=== PATIENT | female | born 1940 | race Caucasian/White ===

== ENCOUNTER 2024-11-12 07:40 | Day surgery (SDC) | payer MEDICARE ==
--- NOTE | 2024-11-08 14:01 | ELECTROCARDIOGRAPH REPORT ---
[facility] Test Date: 2024-11-08 Test Time: 13:56:28 Pat Name: BRANDON EASON Department: [facility]-PRE-OP Patient ID: [id number] Room: Gender: F Daycare Teacher: ESEQUIEL : 1940 Requested By: INEZ PRITCHARD Order Number: [id number] Reading MD: Dr. ARCADIO Malone Measurements Intervals [place] Rate: 57 P: 51 SC: 185 QRS: 47 QRSD: 90 T: 48 QT: 408 QTc: 398 Interpretive Statements Sinus bradycardia Electronically Signed On 11-08-2024 16:46:[address] ARCADIO Malone Please click the below link to view image of tracing.
[2024-11-08 14:23] LABS: MEAN PLATELET VOLUME 9.1 FL (7.4-10.4); PRE OP HEMATOCRIT 38.5 % (35.0-45.0); PRE OP HEMOGLOBIN 12.7 g/dL (12.0-16.0); PRE OP PLATELET COUNT 171 X10'3 (140-440); PRE OP WHITE BLOOD COUNT 7.8 10'3 (4.8-10.8); RED CELL DISTRIBUTION WIDTH 14.3 % (11.5-14.5)
[2024-11-08 14:39] LABS: CREATININE 0.79 MG/DL (0.40-0.90); PRE OP ALT 20 U/L (30-65); PRE OP ANION GAP 6 (8-16); PRE OP AST 15 U/L (10-37); PRE OP BILIRUB, TOTAL 0.4 MG/DL (0.0-1.0); PRE OP GLUCOSE 87 MG/DL (70-104); PRE OP POTASSIUM 3.5 MMOL/L (3.4-5.1); PRE OP SODIUM 140 MMOL/L (135-145); TOTAL CARBON DIOXIDE 28.9 MMOL/L (24-32); eGFR 70 ML/MIN
[2024-11-12] VITALS (13 sets, daily range): BP systolic 160–190; BP diastolic 71–94; PULSE 59–79; RESP 11–19; TEMP 97.3; O2SAT 92–99
[~2024-11-12] VITALS: Ht 154.9 cm; Wt 79.0 kg
[2024-11-12] MEDS: ceFAZolin 2gm/dext,iso 50mL 50 ML IV ONE ×2 (05:30→08:51)
[~2024-11-12 07:40] MED LIST: NO HOME MEDS; ringers solution, lacted 1,000 ML IV SCH
[2024-11-12] MEDS: ringers solution, lacted 1,000 ML IV SCH (08:52)
[2024-11-12] MEDS ORDERED: HYDROmorphone/PF 0.2 MG/ML SYRINGE IV PRN ×2 (09:10)
[2024-11-12] MEDS ORDERED: ringers solution, lacted 1,000 ML IV SCH (09:10)
[2024-11-12] MEDS ORDERED: hydrALAZINE 20mg/ml inj. IV PRN (09:10)
[2024-11-12] MEDS ORDERED: ondansetron/PF 4mg/2ml inj IV PRN (09:10)
[2024-11-12] MEDS ORDERED: LIDOcaine 1% (10mg/ml)w/preservative inj. 20ml MDV ONE (09:18)
[2024-11-12] MEDS ORDERED: BUPIVAcaine/PF 2.5mg/ml (0.25%) 10ml vial ONE (09:19)
[2024-11-12] MEDS ORDERED: methylene blue (5mg/ml) 50mg/10ml ampul IV ONE (09:20)
[2024-11-12] MEDS ORDERED: propofol inj 20 ML IV ONE (09:52)
[2024-11-12] MEDS ORDERED: fentaNYL/PF 50MCG/1 ML 2ML syringe ONE (09:52)
[2024-11-12] MEDS ORDERED: dexamethasone sod phosphate 4mg/ml inj. ONE (12:14)
[2024-11-12] MEDS ORDERED: ondansetron/PF 4mg/2ml inj ONE (12:14)
[2024-11-12] MEDS: acetaminophen 1,000mg/100ml IV 100 ML IV PRN (12:40)
--- NOTE | 2024-11-12 12:44 | OPERATIVE REPORT ---
Operative Report Providers to CC CC: INEZ PRITCHARD DO ~ Date of Procedure: Nov 12, 2024 Pre-Operative Diagnosis: left breast breast cancer at 5:00 5 cfn and 6:00 3cfn, acquired defect Post-Operative Diagnosis SAME as PRE-Op Procedure Performed 1. left breast ultrasound guided localized lumpectomy at 6:00 3 cfn 2. left breast wireless (pintuition ) localized lumpectomy at 5:00 5 cfn 3. Intraoperative ultrasound guidance 4. Reading of specimen radiograph 5. Oncoplastic closure of acquired defect Surgeon: Dr. Inez Pritchard Senior Revenue Accountant sterile processing technician Anesthesiologist: Kem Bain Type of Anesthesia: General Findings: Left breast cancer 5:00 5 cm from the nipple and 6:00 3 cm from the nipple two markers within the two tumors and two pintuition markers. Complications None Estimated Blood Loss: less than 10 ml Specimen Removed: -Left breast ultrasound guided lumpectomy at 6:00 3 cfn short suture superior, long lateral, double deep -Left breast wireless localized lumpectomy at 5:00 5 cfn short suture superior, long lateral, double deep -Anterior margin, suture palencia final marginf for 5:00 5 cfn Description of Procedure: Patient was seen and evaluated in the preoperative holding area by myself and the anesthesiologist. The left breast was marked with my initials. Prior to her arrival previously she had two pintuition markers at 6:00 and 5:[address] Nitin Lopes for the removal of multifocal left breast cancer. The risks and benefits and alternatives to surgery were discussed with the patient and she agreed to breast conservation. She was taken to the OR placed on table in supine position with the arms extended. I used the ultrasound to jesus manuel the breast as I identified the tumor at 6:00 3 cm from the nipple. The patient was prepped and draped in a sterile fashion a time-out was performed and agreed upon. She had an IV in place, SCDs to lower extremities, and a Eris Hugger. Antibiotics had been administered prior to the cut of surgery. I made a horizontal incision inferior to the areola and just above the inframammary crease approximately 4 cm in length. I used the ultrasound to scanned the breast again to confirm my markings. I injected 1% lidocaine at the proposed incision site. Once the made the incision with a 15 blade I extended the anterior flap of the incision with the cautery. I dissected down to with the tumor was palpable and dissected around it in a circumferential fashion and p osterior to it. Once the mass was completely excised it was oriented with short stitch superior, long suture lateral, double suture deep. It was secured to the specimen board and placed off the field. The pintuition marker associated with the tumor adhered to the DeBakey forceps. The specimen radiograph confirmed the original marker and the tumor. The images were taken in two views. I proceeded with a 2nd tumor which appeared to be palpable just inferior and lateral to the original tumor. The pintuition probe was used to scan and confirm the location of the 2nd tumor. I circumferentially excised this tumor and it was removed from the cavity and oriented with short stitch superior, long suture lateral, and double suture deep. The specimen was secured onto the specimen radiograph board and placed in the machine. The marker was detected within the tumor. The 2nd tracer also adhered to the DeBakey. Two views were taken of the specimen which confirmed the tumor in the tissue. A frozen section was performed by pathologist Dr. Ayon on both tumors to confirm carcinoma and margin status. The 2nd tumor at 6:00 6 cm from the nipple had a close anterior margin. At that point I excised an anterior margin and marked the final margin with a suture and it was placed in formalin off the field. The cavity was copiously irrigated and hemostasis was achieved with Bovie electrocautery 10 mL of Vistaseal spray for was sprayed into the cavity to help with hemostasis. The acquired defect, cavity measured 15 cm x 8 cm x 4 cm. I mobilized the creating a flap from the superior aspect of the cavity and medial and laterally to feel the acquired defect. That was sutured and secured with 3-0 kasey Vicryl suture. The skin was closed in two layers 3- 0 Vicryl interrupted sutures in the deep dermal layer and 4-0 Monocryl running subcuticular stitch for the skin. All needle and sponge counts were correct patient tolerated the procedure well. She was taken to recovery in stable condition. Counts repoted as correct: Yes INEZ PRITCHARD DO Nov 12, 2024 12:44
[2024-11-12] MEDS: morphine 4 MG/ML inj SYRINge IV PRN (12:45)
[2024-11-12] MEDS: labetalol 20mg/4ml (5mg/ml) syringe IV PRN (12:47)
[2024-11-12] MEDS: ondansetron 4mg rapidly disintigrating tab PO ONE (13:55)
--- NOTE | 2024-11-16 11:56 | PATHOLOGY REPORT ---
[facility] [address] [place] [address] SURGICAL PATHOLOGY REPORT CaseNumber: [id number] Surgeon:Ana Gold M.D. CLINICAL INFORMATION CLINICAL INFORMATION: Invasive carcinoma. Cancer left breast. DIAGNOSIS DIAGNOSIS: A.BREAST, LEFT, 6:00, 3 CM FN; LUMPECTOMY - INVASIVE DUCTAL ADENOCARCINOMA, PATHOLOGIC STAGE PT1C(M). - ALL MARGINS ARE NEGATIVE. - PERMANENT SECTIONS CONFIRM FROZEN SECTION DIAGNOSIS. Comment: Specimen Procedure: Excision (less than total mastectomy) Specimen Laterality: Left Tumor Tumor Site: Clock position; Distance from nipple (Centimeters) 3 cm 6 o'clock Histologic Type: Invasive carcinoma of no special type (ductal) Histologic Grade (Paxton Histologic Score): Glandular (Acinar) / Tubular Differentiation: Score 3 Nuclear Pleomorphism: Score 2 Mitotic Rate: Score 2 Overall Grade: Grade 2 (scores of 6 or 7) Tumor Size: 15 Millimeters (mm) Ductal Carcinoma In Situ (DCIS): Not identified Lymphatic and / or Vascular Invasion: Not identified Treatment Effect in the Breast: No known presurgical therapy Margins Margin Status for Invasive Carcinoma: All margins negative for invasive carcinoma Distance from Invasive Carcinoma to Closest Margin: 6 mm Closest Margin(s) to Invasive Carcinoma: Posterior Regional Lymph Nodes Regional Lymph Node Status: Not applicable (no regional lymph nodes submitted or found) pTNM Classification (AJCC 8th Edition) pT Category: pT1c T Suffix: (m) pN Category: pN not assigned (no nodes submitted or found) ER/MN/Her2 ER- Positive (95% Strongly Positive) MN- Negative Her2- Negative (1+) [facility] 2023 Q2 Release DIAGNOSIS: B.BREAST, LEFT, 5:00, 5 CM FN; LUMPECTOMY - INVASIVE DUCTAL ADENOCARCINOMA, PATHOLOGIC STAGE PT1C (M). - ANTERIOR MARGIN IS CLEAR BY LESS THAN 0.1 CM Comment: Specimen Procedure: Excision (less than total mastectomy) Specimen Laterality: Left Tumor Tumor Site: Clock position; Distance from nipple (Centimeters) 5 cm 5 o'clock Histologic Type: Invasive carcinoma of no special type (ductal) Histologic Grade (Paxton Histologic Score): Glandular (Acinar) / Tubular Differentiation: Score 2 Nuclear Pleomorphism: Score 2 Mitotic Rate: Score 2 Overall Grade: Grade 2 (scores of 6 or 7) Tumor Size: 20 Millimeters (mm) Ductal Carcinoma In Situ (DCIS): Not identified Lymphatic and / or Vascular Invasion: Not identified Treatment Effect in the Breast: No known presurgical therapy Margins Margin Status for Invasive Carcinoma: Anterior Margin narrowly clear (less than 0.1 cm) Regional Lymph Nodes Regional Lymph Node Status: Not applicable (no regional lymph nodes submitted or found) pTNM Classification (AJCC 8th Edition) pT Category: pT1c T Suffix: (m) pN Category: pN not assigned (no nodes submitted or found) ER/MN/Her2 ER- Positive (90% Strongly Positive) MN- Positive (<10% Strongly Positive) Her2- Negative (1+) [facility] 2023 Q2 Release DIAGNOSIS: C.BREAST, LEFT, ANTERIOR MARGIN; RE-EXCISION - BENIGN BREAST TISSUE. MICROSCOPIC DESCRIPTION A. BREAST, LEFT, 6:00, 3 CM FN MICROSCOPIC DESCRIPTION: Reviewed 8 H&E stained slides of a breast lumpectomy. The frozen section sl lucille demonstrates invasive carcinoma that is confirmed by the permanent section. The lesional cells c onsist of nests and sheets of malignant cells in a solid growth pattern. There is an additional secti on of the lesion demonstrating the closest margin, 0.6 cm from posterior margin (black ink). No lymph ovascular or angioinvasion is identified. The remaining sections are of benign adipose tissue. Reviewed ER IHC stained slide which is positive, strongly staining 95% of the lesion. Reviewed MN IHC stained slide which is negative. Reviewed Her2 IHC stained slide which is negative, with light incomplete membrane staining consisten t with a score of 1+. Reviewed Ki-67 IHC stained slide which shows a proliferation index of about 30%. B. BREAST, LEFT, 5:00, 5 CM FN MICROSCOPIC DESCRIPTION: Reviewed 10 H&E stained slides of a breast lumpectomy. The frozen section s lide demonstrates invasive carcinoma that is confirmed by the permanent section. The lesional cells consist of trabeculae and sheets of malignant cells in a mix of ductal and solid growth patterns. The lesion extends to the anterior margin (red ink). No lymphovascular or angioinvasion is identified. One ER IHC stained slide is reviewed. The ER IHC stain is positive, strongly staining 95% of the les ion. One MN IHC stained slide is reviewed. The MN IHC stain is positive, strongly staining less than 10% of the lesion. One Her2 IHC stained slide is reviewed. The Her2 IHC stain is negative, with light incomplete membra ne staining consistent with a score of 1+. There is focal staining of 2+ for less than 10% of the les ion. One Ki-67 IHC stained slide is reviewed. The Ki-67 IHC stain shows a proliferation index of about 20 %. C. BREAST, LEFT, ANTERIOR MARGIN MICROSCOPIC DESCRIPTION: Reviewed are five H&E stained slides of benign breast tissue with terminal d ucts and lobules. No malignancy is identified. GROSS DESCRIPTION A. BREAST, LEFT, 6:00, 3 CM FN GROSS DESCRIPTION: Received unfixed from the operating room labeled with the patient's name, number, and "left breast lumpectomy" is a 37 g oriented excision of fibrofatty breast tissue which measures 9 x 5.5 x 3 cm. The specimen is examined at the time of surgery and a portion of the specimen is submi tted for frozen section by Dr. Ayon. There are sutures found marking the superior, lateral, and adam p aspects of the excision. The superior margin is marked blue, the inferior margin is marked green, t he medial margin is marked orange, the lateral margin is marked yellow, the anterior margin is marked red, and the posterior margin is marked black. The specimen is sectioned by Dr. Ayon to reveal a 1 .5 x 1 x 1.5 cm firm parker-singer neoplasm which is present 1 cm from the anterior, posterior, and inferi or margins. Sectioning the neoplasm reveals foreign material (metallic clip). INTRAOPERATIVE CONSULTATION WITH FROZEN SECTION DIAGNOSIS BY Dr. Ayon at 1145: "Invasive carcinoma ." (Performed at [address] [address]) Sections are submitted as follows: A1) Frozen section remnantA2) Superior marginA3-A4) Inferior margin with tumorA5) Medial marginA6) L ateral marginA7) Tumor with anterior and posterior margins The time at which the specimen was removed was 1110. The time at which the specimen was placed in [facility] was not provided. (meb) B. BREAST, LEFT, 5:00, 5 CM FN GROSS DESCRIPTION: Received unfixed from the operating room labeled with the patient's name, number, and "left breast lumpectomy" is a 53 g oriented excision of fibrofatty breast tissue which measures 8 .5 x 5 x 3 cm. The specimen is examined at the time of surgery and a portion of the tissue is submitt ed for frozen section by Dr. Ayon. There are sutures marking the superior, lateral, and posterior a spects of the excision. The superior margin is marked blue, the inferior margin is marked green, the medial margin is marked orange, the lateral margin is marked yellow, the anterior margin is marked re d, and the posterior margin is marked black. The specimen is sectioned by Dr. Ayon reveal a 2 x 2 x 1.5 cm firm parker-singer neoplasm which is present at the anterior margin, 0.5 cm from the inferior alexandru in, and 0.6 cm from the posterior margin. INTRAOPERATIVE CONSULTATION WITH FROZEN SECTION DIAGNOSIS BY Dr. Ayon at 1145: "Invasive carcinoma ." (Performed at [address] [address]) Sections are submitted as follows: B1) Frozen section remnantB2) Superior marginB3-B4) Inferior margin with tumorB5) Medial marginB6) L ateral marginB7-B8) Anterior margin with tumorB9) Posterior margin with tumor The time at which the specimen was removed was 1110. The time at which the specimen was placed in fo rmalin was not provided. (meb) C. BREAST, LEFT, ANTERIOR MARGIN GROSS DESCRIPTION: Received in a container of formalin labeled with the patient's name, number, and " left breast anterior margin" is a 16 gram oriented excision of fibrofatty breast tissue which measure s 5 x 4 x 2 cm. There is a suture found marking the new margin. The new margin is marked black. Secti oning reveals foreign material (metallic clip). [employer]xtures Decorator sections are submitted as C1-C5. The t dustin at which the specimen was removed was 1155. The time at which the specimen was placed in formalin was 1158. (meb) Electronically signed by: Lexx Vázquez M.D. 11/16/2024 11:21:00 AM
== END 2024-11-12 13:56 | disposition home or self-care (01) ==
LOC: PAS 07:40
PROVIDERS: ATTEND Surgery
DX: C50.512 Malignant neoplasm of lower-outer quadrant of left female breast (principal); Z90.49 Acquired absence of other specified parts of digestive tract; Z98.890 Other specified postprocedural states
CPT/HCPCS: 19301; 36415; 76098; 80053; 82948; 85025; 88307; 88331; 88360; 93005; A4215; A4618; A6258; A7000; J0131; J1100; J2270; J2405; J2704; J3010; J3490; J7030; J7120; Z7506; Z7508; Z7512; Z7610; C9250; Q9968